=== PATIENT | male | born 1985 | race Caucasian/White ===

== ENCOUNTER 2021-06-17 18:23 | Inpatient (IN) | payer SELFPAY ==
[~2021-06-17] VITALS: Ht 182.9 cm; Wt 70.4 kg
[2021-06-17 19:17] LABS: HEMOGLOBIN 16.8 g/dl (13.5-18.0); MEAN CELL VOLUME 86 fl (80.0-100.0); MEAN CORPUSCULAR HEMOGLOBIN 31 pg (27.0-31.0); MEAN CORPUSCULAR HGB CONC 36 g/dl (33.0-37.0); PLATELET COUNT 232 K/mm3 (130-400); RED BLOOD COUNT 5.47 M/mm3 (4.20-5.60); REDCELL DISTRIBUTION WIDTH-CV 11.9 % (11.5-14.5)
[2021-06-17 19:23] LABS: ALBUMIN 4.6 gm/dL (3.5-5.0); C-REACTIVE PROTEIN 10.91 mg/dL (0.00-0.50); CALCIUM 9.9 mg/dL (8.4-10.2); CREATININE, serum 1.13 mg/dL (0.72-1.25); POTASSIUM 3.6 mmol/L (3.5-4.5); TOTAL PROTEIN 8.2 gm/dL (6.2-8.1)
[2021-06-17 19:47] LABS: BAND 4 % (0-10); LYMPHOCYTE 3 % (20.0-51.0); NEUTROPHILS 88 % (42.0-75.2)
[2021-06-17 22:25] LABS: CSF MONONUCLEAR 5 % (70-100); CSF POLYMORPHONUCLEAR 95 % (0-6); CSF RBC 1000 /mm3 (0-0)
[2021-06-17 22:37] LABS: CSF MONONUCLEAR 4 % (70-100); CSF POLYMORPHONUCLEAR 96 % (0-6); CSF RBC 1000 /mm3 (0-0)
[2021-06-17 22:41] LABS: CSF APPEARANCE CLOUDY; CSF COLOR YELLOW
[2021-06-17 22:42] LABS: CSF APPEARANCE CLOUDY; CSF COLOR YELLOW
[2021-06-17 23:09] LABS: COLLECTION METHOD CLEAN CATCH
[2021-06-17 23:20] LABS: GLUCOSE,CSF 1 mg/dL (40-70)
[2021-06-17 23:22] LABS: PH 6 (5-8); SQUAMOUS EPITHELIAL None Seen /hpf; URINE APPEARANCE Cloudy; URINE BACTERIA None Seen /hpf; URINE BILIRUBIN Negative (NEGATIVE); URINE BLOOD 3+ (NEGATIVE); URINE COLOR Yellow; URINE GLUCOSE 2+ (NEGATIVE); URINE KETONE Trace (NEGATIVE); URINE LEUKOCYTE ESTERASE Negative (NEGATIVE); URINE NITRATE Negative (NEGATIVE); URINE PROTEIN(semi-quant) 2+ (NEGATIVE); URINE RBC >50 /hpf; URINE UROBILINOGEN Negative (NEGATIVE)
[2021-06-18] VITALS (616 sets, daily range): BP systolic 121–152; BP diastolic 64–96; PULSE 79–110; TEMP 97.2–98.5; O2SAT 72–100
[2021-06-18 02:21] LABS: MAGNESIUM 1.3 mg/dL (1.6-2.6)
--- NOTE | 2021-06-18 02:32 | NUR ---
Vancomycin Initial Dosing Pharmacy Note Ordering provider: Julissa Tran E., Indication/duration: MENINGITIS / 7 DAYS Trough goal: 15-25 DOSING HX: NONE IDENTIFIED BMI: 19.9 WT: 66.7 KG SCR: 1.13 ESTCRCL ~ 85 ML/MIN T 1/2 ~ 9H PER H&P PT REPORTING NECK PAIN TMAX: 99.9 WBC: 27.6 LA: 3.7->1.7 CRP: 10.91 CSF -> CLOUDY, YELLOW, WBC: 6199->8849, MONONUCLEAR WBCs%: 5, POLYNUCLEAR WBCs%: 95, GLUCOSE: 1, TOTAL PROTEIN: 870 MICRO PENDING PT WAS LOADED WITH 1.25 GM (~19 MG/KG) IN ED. WILL START A MAINTENANCE REGIMEN OF 1.25 GM Q12H. WILL FOLLOW RENAL FUNCTION, LEVELS, MICRO, AND THERAPY PLAN FOR NEED TO ADJUST TREATEMENT REGIMEN. THANK YOU FOR THIS DOSING CONSULT!
[2021-06-18 05:17] LABS: BASO % 0.2 % (0.0-2.0); EOS # 0.1 K/mm3 (0.0-0.7); EOS % 0.4 % (0-4.0); GRAN # 20.9 K/mm3 (1.4-6.5); GRAN % 92.7 % (42.2-75.2); HEMATOCRIT 40.9 % (42.0-52.0); LYMPH # 0.5 K/mm3 (1.2-3.4); MEAN CELL VOLUME 87 fl (80.0-100.0); MEAN CORPUSCULAR HEMOGLOBIN 30 pg (27.0-31.0); MEAN CORPUSCULAR HGB CONC 35 g/dl (33.0-37.0); MEAN PLATELET VOLUME 10.1 fl (7.4-10.4); MONO # 0.7 K/mm3 (0.1-0.6); MONO % 3.2 % (1.7-9.3); PLATELET COUNT 146 K/mm3 (130-400); RED BLOOD COUNT 4.73 M/mm3 (4.20-5.60); REDCELL DISTRIBUTION WIDTH-CV 11.9 % (11.5-14.5)
[2021-06-18 05:33] LABS: HEMOGLOBIN 14.3 g/dl (13.5-18.0)
[2021-06-18 05:37] LABS: CALCIUM 9.1 mg/dL (8.4-10.2); CREATININE, serum 0.75 mg/dL (0.72-1.25); POTASSIUM 3.6 mmol/L (3.5-4.5)
[2021-06-18 06:22] LABS: BAND 42 % (0-10); LYMPHOCYTE 1 % (20.0-51.0); NEUTROPHILS 55 % (42.0-75.2); PLATELET ESTIMATE NORMAL (NORMAL)
--- NOTE | 2021-06-18 07:20 | NUR ---
RECEIVED REPORT FROM GARCIA HEATH. PT RESTING IN BED ON RA. PT C/O GENERALIZED PAIN ESPECIALLY WITH MOVEMENT. VSS. CALL LIGHT AND URINAL WITHIN REACH.
--- NOTE | 2021-06-18 20:00 | NUR ---
Assessment complete and charted. Patient reporting headache and double vision. Provided with tylenol. Denies other needs at this time. Call light in reach.
--- NOTE | 2021-06-18 22:14 | NUR ---
Report given to Ana ZELAYA
--- NOTE | 2021-06-18 22:33 | NUR ---
Patient transferred to [facility]
--- NOTE | 2021-06-18 22:57 | NUR ---
ICU BED 7 TRANSFER TO BED 357 MEDICAL. REPORT FROM HOLLY. CARE ASSUMED. IVS TO LT AND RT UPPER ARM. NS AT 125/HR. MEDS PER OCT. REQ SLEEP AIDE, ALLISION PA CALLED FOR ORDER. DROPLET PRECAUTIONS. URINAL, PILLOWS AND WATER PROVIDED. POC DISCUSSED. CALL LIGHT WI REACH.
--- NOTE | 2021-06-19 03:03 | NUR ---
ICE PACK FOR STIFF NECK. OFFERED TYL OR WARM BLANKET, DECLINED. C.O STILL NOT BEING ABLE TO SLEEP AFTER BENEDRYL.
[2021-06-19 04:12] VITALS: BP 143/89; PULSE 77; TEMP 97.7
[2021-06-19 07:48] VITALS: BP 141/93; PULSE 99; TEMP 97.8
[2021-06-19 07:49] VITALS: BP 147/61; PULSE 62; TEMP 98
--- NOTE | 2021-06-19 13:13 | NUR ---
Pt. progressing w/ plan of care. IV abx administered per emar. Pt. reporting chills, feeling sweaty today but no fevers. IVF infusing now. Plan for pt. to take a shower this afternoon. Call light and belongings in reach.
[2021-06-19 14:05] LABS: HEMATOCRIT 42.1 % (42.0-52.0); HEMOGLOBIN 15.1 g/dl (13.5-18.0); MEAN CELL VOLUME 85 fl (80.0-100.0); MEAN CORPUSCULAR HEMOGLOBIN 30 pg (27.0-31.0); MEAN CORPUSCULAR HGB CONC 36 g/dl (33.0-37.0); MEAN PLATELET VOLUME 9.9 fl (7.4-10.4); PLATELET COUNT 219 K/mm3 (130-400); RED BLOOD COUNT 4.96 M/mm3 (4.20-5.60); REDCELL DISTRIBUTION WIDTH-CV 12.6 % (11.5-14.5)
[2021-06-19 14:27] LABS: CREATININE, serum 0.74 mg/dL (0.72-1.25); POTASSIUM 3.6 mmol/L (3.5-4.5)
[2021-06-19 14:40] LABS: LYMPHOCYTE 4 % (20.0-51.0); NEUTROPHILS 96 % (42.0-75.2)
[2021-06-19 14:41] LABS: PLATELET ESTIMATE NORMAL (NORMAL)
[2021-06-19 14:51] VITALS: BP 150/86; PULSE 99; TEMP 98.7
--- NOTE | 2021-06-19 15:32 | NUR ---
SW met with patient to complete intake. Patient states that he lives with spouse Myla in [facility]. Patient provides that he does not utilize DME, and is independent with ADL's. Patient states that he does not have a PCP, documentation provided to establish, utilizes [facility] for pharmacy needs. patient states that he does not have a DPOA and does not wish to appoint one at this time, but states his would be the person to call. Patient states his plan is to return to his home [place]. SW will continue to follow. DC plan: home
--- NOTE | 2021-06-19 15:46 | NUR ---
Critical result of WBC, see labs. Dr. Galindo notified. Dr. Galindo inquiring if MRI can be done today, which is ordered for the patient. This RN was unsure if MRI department was able to complete MRI today, will call and let Dr. Galindo know. Dr. Galindo reports if MRI cannot be done today, possibly a CT scan would be ordered.
--- NOTE | 2021-06-19 18:45 | NUR ---
Pt. has been back from CT scan for some time, supportive at bedside. Pt.'s educated on contact and droplet precautions, pt.'s agreeable of using a gown, gloves, and a mask when visiting. The pt. reports feeling better now, his ice pack is on his posterior neck and reports good effect from PO ibuprofen. Pt. reports pain is tolerable at this time, level 6/10 on 0-10 pain scale. Pt. denies further needs at this time. Call light and belongings in reach. Report given to oncoming RNAna. nAa was pt.'s nurse last night.
[2021-06-19 20:04] VITALS: BP 19/85; PULSE 81; TEMP 97.8
--- NOTE | 2021-06-19 21:12 | NUR ---
ALERT AND OX4. DENIES SOA, CHEST PAIN OR DIZZY. STIFF SORE NECK. TYL GIVEN. PM MEDS GIVEN ALONG W SLEEP AIDE. URINATION DARK FELIPA W BLOOD. ICE PACK TO NECK. ANTIBOTICS GIVEN. IN [facility] HAD VISIT W TODAY. NEEDS MET.
--- NOTE | 2021-06-19 22:47 | NUR ---
DR AYALA ID DOC UPDATED ON PT STATUS.
[2021-06-20] VITALS (7 sets, daily range): BP systolic 119–143; BP diastolic 72–89; PULSE 70–105; TEMP 97.5–100.1
--- NOTE | 2021-06-20 07:08 | NUR ---
PATIENT AWAKE IN BED. REQUESTED WATER PROVIDED. HE DENIES FURTHER NEEDS AT THIS TIME.
--- NOTE | 2021-06-20 10:03 | NUR ---
PATIENT ASSESSMENT COMPLETED. FEELING BETTER. IVF INFUSING. LAB ORDER TO CHECK POTASSIUM LEVEL. PAIN AND NECK STIFFNESS BETTER NO NEED FOR MEDICATION.
[2021-06-20 12:42] LABS: HEMATOCRIT 37.3 % (42.0-52.0); MEAN CELL VOLUME 87 fl (80.0-100.0); MEAN CORPUSCULAR HEMOGLOBIN 30 pg (27.0-31.0); MEAN CORPUSCULAR HGB CONC 35 g/dl (33.0-37.0); MEAN PLATELET VOLUME 10.9 fl (7.4-10.4); PLATELET COUNT 188 K/mm3 (130-400); RED BLOOD COUNT 4.27 M/mm3 (4.20-5.60); REDCELL DISTRIBUTION WIDTH-CV 12.6 % (11.5-14.5)
[2021-06-20 12:53] LABS: HEMOGLOBIN 12.9 g/dl (13.5-18.0)
[2021-06-20 12:55] LABS: CALCIUM 9.3 mg/dL (8.4-10.2); CREATININE, serum 0.66 mg/dL (0.72-1.25); POTASSIUM 3.7 mmol/L (3.5-4.5)
[2021-06-20 13:32] LABS: LYMPHOCYTE 2 % (20.0-51.0); NEUTROPHILS 97 % (42.0-75.2)
[2021-06-20 13:33] LABS: PLATELET ESTIMATE NORMAL (NORMAL)
[2021-06-20 18:43] LABS: COLLECTION METHOD CLEAN CATCH
[2021-06-20 18:50] LABS: AMORPHOUS CRYSTAL Present /uL; PH 7 (5-8); SQUAMOUS EPITHELIAL None Seen /hpf; URINE APPEARANCE Hazy; URINE BACTERIA Rare /hpf; URINE BILIRUBIN Negative (NEGATIVE); URINE BLOOD 3+ (NEGATIVE); URINE COLOR Yellow; URINE GLUCOSE Negative (NEGATIVE); URINE KETONE Trace (NEGATIVE); URINE LEUKOCYTE ESTERASE Trace (NEGATIVE); URINE NITRATE Negative (NEGATIVE); URINE PROTEIN(semi-quant) 2+ (NEGATIVE); URINE RBC >50 /hpf; URINE UROBILINOGEN Negative (NEGATIVE); URINE WBC >50 /hpf
--- NOTE | 2021-06-20 19:37 | NUR ---
CHECKED PT AT DOORSIDE, PT LAYING IN BED. NO COMPLAINTS AT THIS TIME.
[2021-06-21] VITALS (7 sets, daily range): BP systolic 107–158; BP diastolic 73–96; PULSE 63–80; TEMP 97.8–98.5
[2021-06-21 08:23] LABS: GRAN # 4.8 K/mm3 (1.4-6.5); GRAN % 83.4 % (42.2-75.2); HEMATOCRIT 37.1 % (42.0-52.0); HEMOGLOBIN 12.9 g/dl (13.5-18.0); LYMPH # 0.6 K/mm3 (1.2-3.4); LYMPH % 10.5 % (20.0-51.0); MEAN CELL VOLUME 87 fl (80.0-100.0); MEAN CORPUSCULAR HEMOGLOBIN 30 pg (27.0-31.0); MEAN CORPUSCULAR HGB CONC 35 g/dl (33.0-37.0); MEAN PLATELET VOLUME 9.9 fl (7.4-10.4); MONO # 0.3 K/mm3 (0.1-0.6); MONO % 5.2 % (1.7-9.3); PLATELET COUNT 206 K/mm3 (130-400); RED BLOOD COUNT 4.27 M/mm3 (4.20-5.60); REDCELL DISTRIBUTION WIDTH-CV 12.2 % (11.5-14.5)
[2021-06-21 08:36] LABS: CALCIUM 9.4 mg/dL (8.4-10.2); CREATININE, serum 0.7 mg/dL (0.72-1.25); POTASSIUM 3.5 mmol/L (3.5-4.5)
--- NOTE | 2021-06-21 10:01 | NUR ---
Pt awake upon entry, no C/O pain at this time. Shift assessment complete, left Pt call lift in reach, bed in lowest position.
--- NOTE | 2021-06-21 11:10 | NUR ---
ID is recommending IV Rocephin twice a day for 2 weeks. SW contacted the patient to address the antibiotics. The patient confirms that he is self pay. Due to being self pay, the outpatient IV antibiotics will need to be set up in the Express Unit at [facility] or [facility]. The patient lives in [place]. The patient reports that he lives closer to [place] and would prefer to get them set up here. He reports that his will be able to transport him. SW contacted the patient's , Laura, and updated her on the above. Laura confirms that she will be able to transport the patient here. The patient is self pay. SW consulted Financial Counseling.
--- NOTE | 2021-06-21 14:56 | NUR ---
Bridgett, Financial Counselor, completed the FAA with the patient. KANDI met with the patient and presented the FAA to obtain his signature. The patient signed the FAA. KANDI emailed the FAA back to Bridgett.
--- NOTE | 2021-06-21 22:52 | NUR ---
PT LAYING IN BED WITH NO COMPLAINTS OF PAIN. PT STATED THAT NECK AND HEADACHE ARE NO LONGER THERE FOR HIM. PT TURNED ON TV TO CHECK VISION, PT STATED THERE WAS NO DOUBLE VISION. PT HAD NO COMPLAINTS OF PAIN. PT STATED "I AM FEELING SO MUCH BETTER" PT TOOK ALL MEDICATIONS EXCEPT BENADRYL "IT DOESN'T HELP ME". PT COMPLAINED OF INDIGESTION, GOT AN ORDER FOR TUMS FROM [facility]. PT HAD HICCUPS, ADVISED TO TALK SMALL SIPS OF WATER TO HELP. HICCUPS RELIEVED. PT CALL LIGHT IN REACH, NO OTHER NEEDS AT THIS TIME.
[2021-06-22 00:57] VITALS: BP 144/78; PULSE 53; TEMP 97.5
[2021-06-22 03:39] VITALS: PULSE 65
--- NOTE | 2021-06-22 06:03 | NUR ---
PT LAID IN BED ALL NIGHT SLEEPING AFTER GIVING RESTORIL. PT AGREED TO IV ANTIBIOTICS AND TOOK MEDICATIONS EXCEPT FOR BENADRYL. PT HAS REPORTED NO PAIN IN NECK AND BACK. DENIES HEADACHE. DENIES DOUBLE VISION, REPORTS SLIGHTLY BLURRY VISION STILL. PT URINE HAS IMPROVED SIGNIFICANTLY TO CLEAR/YELLOW URINE. PT WAS PLEASANT ALL NIGHT. CALL LIGHT IN REACH, NO NEEDS AT THIS TIME.
[2021-06-22 07:19] LABS: BASO % 0.1 % (0.0-2.0); GRAN # 6.8 K/mm3 (1.4-6.5); GRAN % 85.5 % (42.2-75.2); HEMOGLOBIN 12.8 g/dl (13.5-18.0); LYMPH # 0.7 K/mm3 (1.2-3.4); LYMPH % 9.1 % (20.0-51.0); MEAN CELL VOLUME 87 fl (80.0-100.0); MEAN CORPUSCULAR HEMOGLOBIN 30 pg (27.0-31.0); MEAN CORPUSCULAR HGB CONC 35 g/dl (33.0-37.0); MEAN PLATELET VOLUME 10.3 fl (7.4-10.4); MONO # 0.4 K/mm3 (0.1-0.6); MONO % 4.5 % (1.7-9.3); PLATELET COUNT 244 K/mm3 (130-400); RED BLOOD COUNT 4.22 M/mm3 (4.20-5.60)
[2021-06-22 07:26] LABS: HEMATOCRIT 36.8 % (42.0-52.0)
[2021-06-22 07:43] VITALS: BP 122/79; PULSE 61; TEMP 98
[2021-06-22 07:44] LABS: ALBUMIN 2.8 gm/dL (3.5-5.0); CALCIUM 9.2 mg/dL (8.4-10.2); CREATININE, serum 0.65 mg/dL (0.72-1.25); TOTAL PROTEIN 5.7 gm/dL (6.2-8.1)
[2021-06-22 07:58] LABS: BILIRUBIN,TOTAL 0.8 mg/dL (0.2-1.2)
--- NOTE | 2021-06-22 09:05 | NUR ---
Pt sleeping upon entry, easily awakened. No C/O pain at this time. Shift assessments complete, left Pt call light in reach, bed in lowest position.
--- NOTE | 2021-06-22 10:25 | NUR ---
KANDI attended clinical rounds. The patient is to tentatively discharge later today, pending midline placement for the IV antibiotics. The patient does not have a PCP. He is self pay. KANDI followed up with the patient and informed him of the [facility] and [facility] in [place]. The patient would prefer to get set up in [place]. KANDI contacted Alejandra at [facility] and secured the patient an appointment there on 06/30 at 1700. KANDI notified the community relations representative and the patient of the appointment. KANDI will need to fax the patient's records and orders to [facility] [phone]. KANDI contacted [facility] in the Express Unit and secured the patient an appointment there at 0800 to start the IV antibiotics. KANDI informed the community relations representative and the patient of his appointment. KANDI will need to fax the patient's orders to the Express Unit. KANDI to continue to follow.
[2021-06-22] MEDS ORDERED: ROCEPHIN 2GM VIAL21 IJ ×2 (10:42→16:06)
[2021-06-22 11:44] VITALS: BP 132/68; PULSE 53; TEMP 98.3
--- NOTE | 2021-06-22 14:43 | NUR ---
The midline was placed. KANDI contacted and updated the patient's , Laura. Laura is in agreement to the plan. The patient is to discharge back home with his today, 06/22, with outpatient IV antibiotics in the Express Unit. KANDI faxed the patient's records and orders to [facility] in the Express Unit. KANDI faxed the patient's records and orders to Alejandra at [facility]. No additional needs at this time.
--- NOTE | 2021-06-22 17:00 | NUR ---
Pt discharged to home, discussed discharge information with Pt, answered questions. Pt escorted to entrance by PCT, Pt left with spouse via private transportation.
== END 2021-06-22 17:00 | disposition home or self-care (01) | DRG 871 ==
LOC: COL.ER 18:23 → MEDICAL 21:25 → ICU 21:25 → MEDICAL 06-18 22:45
PROVIDERS: Family Medicine; Internal Medicine; Physician Assistant; Student in an Organized Health Care Education/Training Program; ADMIT Family Medicine
PROC: 009U3ZX Drainage of Spinal Canal, Percutaneous Approach, Diagnostic (ICD-10-PCS; principal; 2021-06-17)
DX: A41.3 Sepsis due to Hemophilus influenzae (principal); G00.0 Hemophilus meningitis; G93.40 Encephalopathy, unspecified; R31.9 Hematuria, unspecified; E87.6 Hypokalemia; E83.42 Hypomagnesemia; H66.90 Otitis media, unspecified, unspecified ear; H53.2 Diplopia; R44.1 Visual hallucinations; Z20.822 Contact with and (suspected) exposure to COVID-19
CPT/HCPCS: 99223-AI; 99232-AI; 99233-AI; 99239; A9585; C1751; C1892; J0133; J0696; J1100; J1650; J2405; J2543; J3370; J3475; J3480; J7030; J7050; J7120

== ENCOUNTER 2021-06-26 08:18 | Outpatient (RCR) | payer SELFPAY ==
[2021-06-23 09:22] VITALS: BP 123/74; PULSE 68; TEMP 97
[2021-06-23 18:29] VITALS: BP 125/84; PULSE 72; TEMP 98.8
[2021-06-24 06:44] VITALS: BP 110/79; PULSE 81; TEMP 98.7
[2021-06-24 17:48] VITALS: BP 125/75; PULSE 102; TEMP 98.4
--- NOTE | 2021-06-24 20:00 | NUR ---
Pt tolerated his blood transfusions with no problem. He is sitting up now at edge of bed. lab draw for H&H to be done at 2014, with departure planned after lab draw. His ride is waiting outside for him. Pt reports feeling "better than I have all day". Pt was able to transfer independently from wheelchair to toilet and back, and from wheelchair to bed while in express unit. I have been visiting with pt frequently, and call light is within reach.
[2021-06-25 07:31] VITALS: BP 118/70; PULSE 87; TEMP 98.2
[2021-06-25 17:48] VITALS: BP 126/77; PULSE 89; TEMP 98.4
[~2021-06-26] VITALS: Ht 182.9 cm; Wt 64.0 kg
[~2021-06-26 08:18] MED LIST: ROCEPHIN 2GM VIAL21 IJ
[2021-06-27 07:30] VITALS: BP 131/90; PULSE 90; TEMP 97.9
[2021-06-28 07:15] VITALS: BP 126/63; PULSE 87; TEMP 97.7
[2021-06-28 07:50] LABS: BASO % 0.3 % (0.0-2.0); EOS % 0.6 % (0-4.0); GRAN # 5.1 K/mm3 (1.4-6.5); GRAN % 70.3 % (42.2-75.2); HEMOGLOBIN 13.6 g/dl (13.5-18.0); LYMPH # 1.4 K/mm3 (1.2-3.4); LYMPH % 18.8 % (20.0-51.0); MEAN CELL VOLUME 87 fl (80.0-100.0); MEAN CORPUSCULAR HEMOGLOBIN 30 pg (27.0-31.0); MEAN CORPUSCULAR HGB CONC 35 g/dl (33.0-37.0); MEAN PLATELET VOLUME 8.9 fl (7.4-10.4); MONO # 0.6 K/mm3 (0.1-0.6); MONO % 8.8 % (1.7-9.3); PLATELET COUNT 283 K/mm3 (130-400); RED BLOOD COUNT 4.49 M/mm3 (4.20-5.60)
[2021-06-28 08:01] LABS: ALBUMIN 3.3 gm/dL (3.5-5.0); C-REACTIVE PROTEIN 0.55 mg/dL (0.00-0.50); CALCIUM 9.5 mg/dL (8.4-10.2); CREATININE, serum 0.66 mg/dL (0.72-1.25); POTASSIUM 4.1 mmol/L (3.5-4.5); TOTAL PROTEIN 6.5 gm/dL (6.2-8.1)
[2021-06-28 08:24] LABS: ERYTHROCYTE SEDIMENTATION RATE 24 mm/hr (0-15)
[2021-06-28 17:57] VITALS: BP 126/85; PULSE 99; TEMP 97.5
[2021-06-29 07:40] VITALS: BP 116/83; PULSE 101; TEMP 98.2
[2021-06-29 17:48] VITALS: BP 138/78; PULSE 102; TEMP 98.9
[2021-06-30 09:16] VITALS: BP 118/81; PULSE 94; TEMP 98
[2021-06-30 18:15] VITALS: BP 133/94; PULSE 98; TEMP 97.8
[2021-07-01 07:30] VITALS: BP 116/75; PULSE 90; TEMP 97.6
--- NOTE | 2021-07-01 12:45 | NUR ---
Pt received orders for PICC removal today after a lab draw. Labs drawn as ordered, and PICC removed by Amada ZELAYA. No problems at puncture site. No redness or evidence of bleeding. Pt verbalized understanding of Amada's written and verbal instructions. He is amb with brisk gait to exit at time of departure.
[2021-07-01 23:54] LABS: IMMUNOGLOBULIN G 497 mg/dL (540-1822)
[2021-07-02 05:04] LABS: IMMUNOGLOBULIN A 173 mg/dL (63-484); IMMUNOGLOBULIN M, QUANTITATIVE 152 mg/dL (22-240)
== END 2021-07-01 12:45 | disposition home or self-care (01) ==
LOC: EUO 06-27 07:00
PROVIDERS: Internal Medicine Infectious Disease
DX: G00.0 Hemophilus meningitis (principal)
CPT/HCPCS: J0696

== ENCOUNTER 2023-09-17 11:37 | Emergency (ER) | payer MEDICAID ==
[~2023-09-17] VITALS: Ht 182.9 cm; Wt 71.4 kg
[2023-09-17 11:55] LABS: COLLECTION METHOD CLEAN CATCH
[2023-09-17 12:40] LABS: PH 6.5 (5.0-8.5); URINE APPEARANCE Turbid (CLEAR/HAZY); URINE BLOOD 3+ (NEGATIVE); URINE COLOR OTHER (YELLOW); URINE GLUCOSE Negative (NEGATIVE); URINE KETONE Negative (NEGATIVE); URINE NITRATE Negative (NEGATIVE); URINE PROTEIN(semi-quant) 3+ (NEGATIVE); URINE UROBILINOGEN 0.2 E.U/dL (0.2-1.0)
[2023-09-17 12:41] LABS: SQUAMOUS EPITHELIAL 0-2 /hpf (0-10); URINE RBC >50 /hpf (0-2)
[2023-09-17 12:56] LABS: BASO % 0.4 % (0.0-2.0); EOS # 0.1 K/mm3 (0.0-0.7); EOS % 0.7 % (0.0-4.0); GRAN # 5.2 K/mm3 (1.4-6.5); GRAN % 70.1 % (42.2-75.2); HEMATOCRIT 40.6 % (42.0-52.0); HEMOGLOBIN 13.7 g/dl (13.5-18.0); LYMPH # 1.6 K/mm3 (1.2-3.4); LYMPH % 21.9 % (20.0-51.0); MEAN CELL VOLUME 89 fl (80.0-100.0); MEAN CORPUSCULAR HEMOGLOBIN 30 pg (27-31); MEAN CORPUSCULAR HGB CONC 34 g/dl (33.0-37.0); MONO # 0.5 K/mm3 (0.1-0.6); MONO % 6.6 % (1.7-9.3); PLATELET COUNT 180 K/mm3 (130-400); RED BLOOD COUNT 4.56 M/mm3 (4.20-5.60); REDCELL DISTRIBUTION WIDTH-CV 12.7 % (11.5-14.5)
[2023-09-17 13:16] LABS: ALBUMIN 3.8 gm/dL (3.5-5.0); BILIRUBIN,TOTAL 1.2 mg/dL (0.2-1.2); CREATININE, serum 0.76 mg/dL (0.72-1.25); TOTAL PROTEIN 6.1 gm/dL (6.2-8.1)
[2023-09-17 13:37] LABS: BILIRUBIN,DIRECT 0.4 mg/dL (0.0-0.5)
[2023-09-17] MEDS ORDERED: Iohexol 300 - 100 ML VIAL IV ONE (13:54)
[2023-09-17] MEDS ORDERED: NS 100 ML IV SCH (13:54)
[2023-09-17 14:42] VITALS: BP 137/97; PULSE 89; TEMP 98.2
== END 2023-09-17 14:42 | disposition home or self-care (01) ==
LOC: COL.ER 11:37
PROVIDERS: Emergency Medicine; Physician Assistant
DX: R31.9 Hematuria, unspecified (principal); R33.9 Retention of urine, unspecified
CPT/HCPCS: Q9967